=== PATIENT | female | born 1930 | race Two or more races ===

== ENCOUNTER 2017-08-07 18:02 | Emergency (ER) | payer OTHER ==
[~2017-08-07] VITALS: Ht 152.4 cm; Wt 47.6 kg
[~2017-08-07 18:02] MED LIST: AMLO5TAB2 PO; ASPI81TA2 PO; BUPR-51 PO; CLOP75TA2 PO; DOCU-170 PO; DOCU100C58 PO; MEMA10TA PO; METO25TA20 PO; RANI150C4 PO; RIVA1PAT3 TD; SIMV40TA2 PO; SULF1TAB48 PO; VITA-32 PO; Valsartan PO
--- NOTE | 2017-08-07 18:05 | NUR ---
Seen and assessed by ED physician at bedside
[2017-08-07] MEDS ORDERED: ACETAMINOPHEN 325 MG TABLET PO ONE (18:30)
--- NOTE | 2017-08-07 18:36 | NUR ---
This is an 80 showed female patient was brought in by her daughter after a ground-level fall; while she was trying to attempt to use the bathroom. According to daughter, the patient denies losing consciousness; she just felt weak on her legs..
[2017-08-07] MEDS ORDERED: LIDOCAINE /MPF 1% VIAL 5 ML VIAL ONE (18:51)
[2017-08-07] MEDS ORDERED: LIDOCAINE 1% INJ 50 ML MDV IJ ONE (18:51)
--- NOTE | 2017-08-07 19:51 | NUR ---
PT. VERBALIZED UNDERSTANDING OF AFTERCARE INSTRUCTIONS.Patient discharged to home in stable condition. Written and verbal after care instructions given. Patient verbalizes understanding of instruction.
[2017-08-07 19:53] VITALS: BP 166/98
== END 2017-08-07 19:53 | disposition home or self-care (01) ==
LOC: ER 18:04
DX: S01.319A Laceration without foreign body of unspecified ear, initial encounter (principal); F41.9 Anxiety disorder, unspecified; F32.9 Major depressive disorder, single episode, unspecified; I25.10 Atherosclerotic heart disease of native coronary artery without angina pectoris; G30.9 Alzheimer's disease, unspecified; I10 Essential (primary) hypertension; Z95.5 Presence of coronary angioplasty implant and graft; Z79.82 Long term (current) use of aspirin; Z79.02 Long term (current) use of antithrombotics/antiplatelets; W01.0XXA Fall on same level from slipping, tripping and stumbling without subsequent striking against object, initial encounter; Y93.E1 Activity, personal bathing and showering; Y92.89 Other specified places as the place of occurrence of the external cause; Y99.8 Other external cause status
CPT/HCPCS: 12011; 70450; 99284; A4606; A6402; A6403 ×2; J3490 ×2; Z7610